=== PATIENT | male | born 1940 | race Caucasian/White ===

== ENCOUNTER 2017-04-23 09:30 | Observation (INO) ==
[2017-04-23] MEDS ORDERED: ASPIRIN PO STA (09:45)
--- NOTE | 2017-04-23 10:33 | EKG Report ---
Test Performed on : 04/23/2017 09:44:14 AM Test Reason : Chest Pain Blood Pressure : / mmHG Vent. Rate : 060 BPM Atrial Rate : 060 BPM P-R Int : 160 ms QRS Dur : 082 ms QT Int : 416 ms P-R-T Axes : 043 -39 015 degrees QTc Int : 416 ms Normal sinus rhythm. Left axis deviation Inferior infarct (cited on or before 07-APR-2014) Abnormal ECG When compared with ECG of 01-JAN-2017 20:39, premature ventricular complexes. are no longer present Serial changes of Inferior infarct present Unconfirmed Result
[2017-04-23 10:35] LABS: MANUAL DIFF NEEDED? NO
[2017-04-23 10:38] LABS: BASO% 0.1 % (0.0-0.8); EOS# 0.12 X1000 (0.0-0.7); EOS% 1.4 % (0.0-10.0); HEMOGLOBIN 14.9 g/dL (14.0-18.0); LYMPH# 2.27 X1000 (1.2-3.4); LYMPH% 26.3 % (20.5-51.1); MCH 32.6 PG (27-31); MCHC 34.7 g/dL (33-37); MCV 94.1 FL (81-99); MONO# 1.24 X1000 (0.11-0.59); MONO% 14.4 % (1.7-9.3); MPV 10.5 FL (7.4-10.4); NEUT% 57.8 % (42.2-75.2); PLT 184 X1000 (130-400); RBC 4.57 XMIL (4.7-6.1)
[2017-04-23 10:47] LABS: INR 1.04; PTT 29.2 Seconds (22.0-36.0)
--- NOTE | 2017-04-23 10:53 | Diag Imaging Result Doc PS360 ---
EXAM: CHEST-1 VIEW HISTORY: CP TECHNIQUE: AP portable chest at 1000 COMMENT: The inspiration is better than on 04/23/2014. Otherwise has been no significant change. The heart size remains enlarged. IMPRESSION: Cardiomegaly. Electronically signed by Suleiman Krueger 04/23/2017 10:50 AM
[2017-04-23 11:02] LABS: AGAP 14; ALBUMIN 4.1 g/dL (3.5-5.0); ALKALINE PHOSPHATASE 106 U/L (32-122); BUN 16 mg/dL (8-22); CALCIUM 8.9 mg/dL (8.8-10.2); CHLORIDE 100 mmol/L (98-107); CK PROFILE 74 U/L (24-204); COSMO 277; GOT 22 U/L (10-34); GPT 21 U/L (10-44); POTASSIUM 4.5 mmol/L (3.5-5.1); SODIUM 137 mmol/L (136-145); TCO2 23 mmol/L (25-35); TOTAL BILIRUBIN 0.86 mg/dL (0.20-1.00); TOTAL PROTEIN 6.4 g/dL (6.3-8.3)
--- NOTE | 2017-04-23 11:26 | ED EKG INTERP ---
This chart was entered by Carlos Bai Scribe, acting as scribe for Zohreh Dobbs MD. EKG Interpretation - EKG Time of EKG reading by physician:: 09:49 EKG Read and Signed by:: Zohreh Dobbs EKG Interpretation (*Must complete 3 of following elements*): Normal Rate: 60 Rhythm: NSR [place]: left WI Interval: normal ST Wave: normal Comments: inferior infarct, age undetermined This chart was documented by the indicated scribe, (Carlos Bai Scribe) and accurately reflects the services I performed and decisions made by me, Zohreh Dobbs MD, as attested by the provider's signature.
--- NOTE | 2017-04-23 11:57 | Diag Imaging Result Doc PS360 ---
EXAM: ANGIOGRAM/PULMONARY ARTERIES HISTORY: CP TECHNIQUE: CT of the chest with intravenous contrast and reduced dose (clarity.) COMMENT: There is COPD particularly in the right upper lobe. There are no filling defects in the pulmonary arteries. The aorta is without evidence of dissection or aneurysm. There is considerable coronary calcification. There has been previous sternotomy. There is an 18 mm right paratracheal node just above the juwan. No abnormal fluid collections are present. There is some fibrotic change in the lung bases. There is a nodule in the right upper lobe on image 33 which is not clearly calcified and measures 11 mm in greatest dimension. There is a 9 mm left hilar node. No acute bony abnormalities are present. IMPRESSION: No evidence of pulmonary emboli. Right upper lobe nodule as described. Mediastinal and hilar adenopathy. Electronically signed by Suleiman Krueger 04/23/2017 11:55 AM
--- NOTE | 2017-04-23 12:18 | PROVIDER DOCUMENTATION ---
This chart was entered by Carlos Bai Scribe, acting as scribe for Zohreh Dobbs MD. HPI-Chest Pain - General Chief Complaint: Chest Pain Stated Complaint: heaviness in chest Time Seen by Provider: 04/23/17 10:00 Source: patient Allergies/Adverse Reactions: Patient Allergies Allergy/AdvReac Type Severity Reaction Status Date / Time No Known Allergies Allergy Verified 01/01/17 22:58 Home Medications: Home Medication List Medication Instructions Recorded Confirmed Last Taken Type Metoprolol [Lopressor] 50 mg PO Q12H #0 tablet 04/09/14 04/23/17 04/22/17 20:00 Rx Tamsulosin HCl 0.4 mg PO DAILY 12/30/16 04/23/17 04/22/17 07:00 History Apixaban [Eliquis] 5 mg PO BID 12/31/16 04/23/17 04/22/17 20:00 History ATORVAstatin [Lipitor] 40 mg PO QHS 04/23/17 04/23/17 04/22/17 20:00 History Multivitamin [Multivitamins] 1 each PO DAILY 04/23/17 04/23/17 04/23/17 08:00 History [place]-3 Fatty Acids [Fish Oil] 300 mg PO DAILY 04/23/17 04/23/17 04/23/17 08:00 History Omeprazole [Prilosec] 20 mg PO BID 04/23/17 04/23/17 04/23/17 07:00 History - History of Present Illness-CP Nature of Presenting Problem: 77 yo M presents to the ER with complaint of CP x1 day. PT noticed it while playing golf yesterday. PT states it is a constant pain and worsens with deep breaths. Also complains of a cough. Location: reports: substernal Chest Pain Radiation: reports: no radiation Quality of Pain: reports: pressure Severity in ED: mild Onset/Duration: 24 hours ago Timing: still present, constant Associated Symptoms: reports: weakness (cough) Review of Systems - Adult - REVIEW OF SYSTEMS - ADULT Constitutional: denies: chills, fever Cardiovascular: reports: chest pain. denies: palpitations Respiratory: reports: cough. denies: shortness of breath Gastrointestinal: denies: abdominal pain, nausea, vomiting All Other Systems: Reviewed and Negative Past History - Adult - PAST MEDICAL HISTORY-ADULT Review of Records: reports: Old Records Reviewed, Nursing Assessment Review, Medications Reviewed, Social history reviewed & non-contributory. Major Childhood Illnesses: reports: denies history Cardiovascular: reports: A-Fib, CAD, HTN, hyperlipidemia Respiratory: reports: denies history Gastrointestinal: reports: GERD Genitourinary: reports: denies history Musculoskeletal: reports: denies history Neurological: reports: denies history Endocrine/Immune: reports: denies history Other Conditions: reports: denies history - PRIOR SURGERIES/PROCEDURES Surgical/Procedure History: reports: CABG, other (Total Knee) - PRIOR HOSPITALIZATIONS Prior Hospitalizations: reports: none - IMMUNIZATION STATUS Childhood Immunizations: See Nurse Assessment Flu Vaccine: See Nurse Assessment - FAMILY HISTORY Family History: reviewed, not pertinent Physical Exam-General - PHYSICAL EXAM-ADULT Initial Vital Signs Reviewed: Yes - CONSTITUTIONAL General Appearance: appears well, alert, no apparent distress - NECK Neck: non-tender, full range of motion, supple - RESPIRATORY Respiratory: chest non-tender, lungs clear, normal breath sounds - CARDIOVASCULAR Cardiovascular: normal peripheral pulses, regular rate, rhythm - GASTROINTESTINAL (ABDOMEN) Abdominal Exam: normal bowel sounds, non tender, soft - MUSCULOSKELETAL Extremity: normal range of motion, non-tender, normal gait - SKIN Integumentary: normal color, normal turgor, warm/dry Progress - PLAN OF CARE/RESULTS Progress/Plan/Lab Results: Vital Signs - 8 hr 04/23/17 09:43 Temperature 97.4 F L Pulse Rate 63 Respiratory Rate 20 Blood Pressure 127/68 O2 Sat by Pulse Oximetry 98 Laboratory Results - last 24 hr 04/23/17 04/23/17 04/23/17 10:18 10:18 10:18 WBC 8.63 RBC 4.57 L Hgb 14.9 Hct 43.0 MCV 94.1 MCH 32.6 H MCHC 34.7 RDW Std Deviation 13.1 Plt Count 184 MPV 10.5 H Immature Gran % (Auto) 0.0 Neut % (Auto) 57.8 Lymph % (Auto) 26.3 Becker % (Auto) 14.4 H Eos % (Auto) 1.4 Baso % (Auto) 0.1 Immature Gran # (Auto) 0.00 Neut # (Auto) 4.99 Lymph # (Auto) 2.27 Becker # (Auto) 1.24 H Eos # (Auto) 0.12 Baso # (Auto) 0.01 PT INR PTT (Actin FS) D-Dimer 0.26 Sodium 137 Potassium 4.5 Chloride 100 Carbon Dioxide 23 L Anion Gap 14 BUN 16 Creatinine 0.9 Estimated GFR/1.73 m2 > 60 BUN/Creatinine Ratio 18 Glucose 127 H Calculated Osmolality 277 Calcium 8.9 Magnesium 2.0 Total Bilirubin 0.86 AST 22 ALT 21 Alkaline Phosphatase 106 Creatine Kinase 74 Troponin T Mry-F-Mdftsvrflxu Pept Total Protein 6.4 Albumin 4.1 Globulin 2.3 Albumin/Globulin Ratio 1.8 04/23/17 04/23/17 04/23/17 10:18 10:18 10:18 WBC RBC Hgb Hct MCV MCH MCHC RDW Std Deviation Plt Count MPV Immature Gran % (Auto) Neut % (Auto) Lymph % (Auto) Becker % (Auto) Eos % (Auto) Baso % (Auto) Immature Gran # (Auto) Neut # (Auto) Lymph # (Auto) Becker # (Auto) Eos # (Auto) Baso # (Auto) PT 11.0 INR 1.04 PTT (Actin FS) 29.2 D-Dimer Sodium Potassium Chloride Carbon Dioxide Anion Gap BUN Creatinine Estimated GFR/1.73 m2 BUN/Creatinine Ratio Glucose Calculated Osmolality Calcium Magnesium Total Bilirubin AST ALT Alkaline Phosphatase Creatine Kinase Troponin T < 0.010 Boh-P-Xmzhjmskipu Pept 186 Total Protein Albumin Globulin Albumin/Globulin Ratio Orders Category Date Time Status Cardiac Monitoring DIRECTED Care 04/23/17 09:45 Active Saline Loc NOW Care 04/23/17 09:45 Active ANGIOGRAM/PULMONARY ARTERIES [CT] Stat Exams 04/23/17 11:17 Completed CHEST-1 VIEW [RAD] Stat Exams 04/23/17 09:45 Completed CBC WITH ELECTRONIC DIFF [HEME] Stat Lab 04/23/17 10:18 Completed CK PROFILE [SP CHEM] Stat Lab 04/23/17 10:18 Completed COMPREHENSIVE METABOLIC PANEL [CHEM] Stat Lab 04/23/17 10:18 Completed D-DIMER [CHEM] Stat Lab 04/23/17 10:18 Completed MAGNESIUM [CHEM] Stat Lab 04/23/17 10:18 Completed PRO B-NATRIURETIC PEPTIDE Stat Lab 04/23/17 10:18 Completed PROTIME WITH INR [COAG] Stat Lab 04/23/17 10:18 Completed PTT [COAG] Stat Lab 04/23/17 10:18 Completed TROPONIN T Stat Lab 04/23/17 10:18 Completed Aspirin Med 04/23/17 09:45 Discontinued 325 mg PO STAT STA EKG [EKG] Stat Ther 04/23/17 09:45 Draft Result Diagrams: 04/23/17 10:18 04/23/17 10:18 - REASSESSMENT Reassessment #1 Time Reassessed: 12:06 Status: unchanged (Reports he had CABG in 1998 and been following up with Dr. Ordonez. Cardiac stress test 1.5 year ago - no stent placed after that stress test. ) Reassessment #2 Time Reassessed: 12:15 Status: unchanged (Discussed with Dr. Rivera, who expressed the concern that Cardiology might want to do an cath. Pt will be admitted to Dr. Tovar at [facility].) - XRAY 1 XRAY Study: Chest Impression: Normal XRAY Interpretation: cardiomegaly - CT/MRI 1 CT Study: Angiogram Impression: Abnormal CT Results: no PE, RUL emboli, mediastinal and hilar adenopathy - CONSULTS/PCP/HOSPITALIST Notification #1 *Consult/PCP/Hospitalist*: Carlos / Dr. Dos Santos Departure - Departure Date of Disposition Decision: 04/23/17 Time of Disposition Decision: 12:17 DIAGNOSIS: Chest pain, Lung nodule Disposition: ADMITTED INPATIENT 09 Certified Medical Emergency: Emergent Condition: Stable Referrals and Follow-Ups: Sal Rivera MD [Primary Care Provider] - - Critical Care Note This patient required my direct & personal management of CC.: No This chart was documented by the indicated scribe, (Carlos Bai Scribe) and accurately reflects the services I performed and decisions made by me, Zohreh Dobbs MD, as attested by the provider's signature.
[2017-04-23] MEDS: LOPRESSOR PO SCH (16:21)
--- NOTE | 2017-04-23 16:48 | HISTORY AND PHYSICAL ---
PRIMARY CARE PHYSICIAN: Dr. Sal Rivera. LEVEL VIAL INSPECTOR: Dr. Jean Carlos Ordonez. CHIEF COMPLAINT: Chest pain. HISTORY OF PRESENT ILLNESS: Mr. Rolle is a 77-year-old male with a history of known coronary disease, paroxysmal atrial fibrillation, GERD, and others, who presents to the ER after he experienced acute onset of chest pain that began yesterday while playing golf. He reports that he was on the 16th hole and immediately after swinging a golf club he had intense chest pain on the left side of his chest. It did not radiate down his arm, however, it persisted throughout the night. He describes it as a sharp pressure. It was not associated with shortness of breath, nausea, vomiting, or diaphoresis. He tried to take some NSAIDs for it at home without relief, so he came to the ER today, as the pain persisted throughout the night. He denies any cough or congestion. No fevers or chills. He does report lower extremity edema and some progressively worsening shortness of breath. This is not similar to previous episodes of symptomatology when he was diagnosed with coronary disease. He came to the ER. Laboratories and diagnostics were done. He has a normal D-dimer; however, CTA was done in the ER, which did not show any evidence of PE or other acute process, but there was a right upper lobe nodule of 11 mm in greatest dimension with mediastinal and hilar lymphadenopathy. His EKG showed normal sinus rhythm without acute ST or T- wave abnormalities. Laboratory work was unremarkable. He is now going to be admitted for further treatment and evaluation. PAST MEDICAL HISTORY: 1. CAD. 2. Hypertension. 3. Hyperlipidemia. 4. Paroxysmal atrial fibrillation, on chronic anticoagulation. SURGICAL HISTORY: He has had a knee replacement as well as an appendectomy and he has had CABG. REVIEW OF SYSTEMS: Fourteen-point review of systems obtained and found to be negative with the exception of the HPI. ALLERGIES: No known drug allergies. HOME MEDICATIONS: Eliquis 5 mg b.i.d.; Lipitor 40 mg at bedtime; Lopressor 50 mg q.12; multivitamin 1 daily; fish oil 300 mg daily; Prilosec 20 mg b.i.d.; Flomax 0.4 mg daily. FAMILY HISTORY: Noncontributory. PHYSICAL EXAMINATION: VITAL SIGNS: Blood pressure is 160/68, heart rate is 57, respiratory rate 20, O2 saturation 100% on room air, and temperature is 98.5 degrees. GENERAL: This is an overweight male, lying in the hospital bed in no acute distress. NEUROLOGIC: The patient is awake, alert, and oriented. He follows commands without focal deficits. HEENT: Head is atraumatic and normocephalic. His pupils are equal, round, and reactive to light. His oral mucosa is moist. Trachea is midline. NECK: No JVD or carotid bruits. CHEST: Diminished at the bases. CARDIOVASCULAR: Regular rate and rhythm. S1 and S2 is noted. No murmurs, gallops, clicks, or rubs. GASTROINTESTINAL: Soft, nondistended, and nontender. Bowel sounds are positive. EXTREMITIES: Without edema, clubbing, or cyanosis. Pulses are palpable bilaterally. DIAGNOSTIC DATA: CT of the chest: See HPI. EKG: Sinus rhythm without acute ST or T-wave abnormalities. WBC 8.63, hemoglobin 14.9, hematocrit 43, platelet count 184,000. INR 1.04. Sodium 137, potassium 4.5, chloride 100, CO2 of 23, anion gap 14, BUN 16, creatinine 0.9, glucose 127, calcium 8.9, magnesium 2, bilirubin 0.86, AST 22, ALT 21, alkaline phosphatase 106. CK 74. Troponin negative. Albumin 4.1. ASSESSMENT AND PLAN: 1. Chest pain: Atypical, bordering on noncardiac in nature, patient does have some pain with movement and palpation to the chest; however, given his history, we will admit him for observation consult Cardiology, trend his cardiac enzymes, continue his home medications. 2. Coronary disease: As above. Will continue risk factor modification, check a lipid panel and hemoglobin A1c. 3. Atrial fibrillation: Currently sinus. Continue his beta-jean-paul and anticoagulant. 4. Hypertension: Chronic and stable. Continue home medications. 5. Hyperlipidemia: Chronic and stable. Continue home medications. 6. Deep vein thrombosis prophylaxis. Provided with his home Eliquis. Further recommendations to follow. Dictated by RALPH Dill for Kalyn Spencer MD cc: RALPH Dill MD
--- NOTE | 2017-04-23 20:41 | CONSULTATION ---
DATE OF CONSULTATION: 04/23/2017 CONSULTATION REQUESTED BY: Hospitalist Service. REASON FOR CONSULTATION: Chest pain. HISTORY: Mr Rolle was in his usual state of health up until yesterday about 2 p.m. in the afternoon. The patient states that he was out on the golf course playing golf. He bent over to pick up attendant a zachary. At that time, when he was straightening out, he felt intensive pain across the anterior chest and mostly localized in the left anterior chest. It was pleuritic in nature and about 7/10 in severity. It did not seem to radiate. After a few moments he continued to play and he finished the 18 holes. This happened on hole 16. He went home. On his way to the house, he drank a beer or half a beer. When he got out of the car at home, he noticed the pain coming back and it hit him a second time. Overnight he was uneasy. He could not lay on his sides because he was hurting. This morning when he woke up, he was still having some mild discomfort and decided to come to the emergency room, seeking medical evaluation. They did an EKG in the emergency room that showed sinus rhythm, rate 60 beats per minute, with a left axis deviation, old inferior scar, no acute ischemic changes. First troponin level is negative. His blood work otherwise showed nothing acute. His BUN and creatinine are normal. Pro BNP level was normal. The patient says that this is a discomfort that he has not experienced before. When he had his original angina, he described that as a discomfort in the left arm that was worsened by exercise. This appeared to be worsened by laying on his . It was also pleuritic. He is not in any distress. PAST MEDICAL HISTORY: His past history is positive for severe coronary heart disease, previous triple bypass in 1998 at [facility], mammary artery to LAD, vein graft to marginal, and vein graft to PDA. In 2013, he took a stress test that was abnormal. He was sent for cardiac cath, done by Dr. Viavr, which found that all his grafts were patent with a moderate stenosis of the vein graft to the right coronary system. At that time medical therapy was recommended. A followup stress test done in June of last year showed similar abnormalities and decision was made to treat him medically. He does have aortic stenosis and the last echo done in June of 2016 showed a rcmu-bc-[id number] degree of aortic stenosis. The pulmonary pressure was elevated. The patient has been diagnosed with paroxysmal atrial fibrillation. He has had hypertension. He has had some exertional dyspnea. He is not aware of having COPD, however, on review of his CT of the chest, he obviously has some emphysema. His medical history is negative for diabetes mellitus. He has had cataract extraction. He has had knee surgery and eye surgery. SOCIAL HISTORY: He is . He has grownup children. Not a drinker. FAMILY HISTORY: Negative. REVIEW OF SYSTEMS: The patient has been really doing well. He had an ear infection a few months ago which was treated by his primary care doctor, Dr. Rivera. In general the patient has been very functional and has not experienced any major setback in his health. In fact, he plays golf 2- 3 times a week without major difficulties. 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 He has no stressors at home. He is basically having a good time. Review of systems is noncontributory. Multiple systems were checked. He has been doing basically fine in multiple systems. HOME MEDICATIONS: 1. Flomax 0.4 mg daily. 2. Prilosec 20 twice a day. 3. [place] fish oil 300 daily. 4. Multivitamin daily. 5. Metoprolol 50 every 12 hours. 6. Eliquis 5 mg twice a day. 7. Lipitor 40 mg at bedtime. PHYSICAL EXAMINATION: Vital signs: Blood pressure is 160/68, temperature 98.5, pulse 67, respirations 20. General: He is awake, alert, oriented, in no distress. HEENT: Unremarkable. Neck: No jugular venous distention. No cervical bruits. Chest: His chest is basically clear to auscultation and percussion. Cardiac: Heart sounds are regular and rhythmic. He does have a systolic murmur, 2/6 in intensity, or aortic stenosis radiating to the neck. Abdomen: Obese, nontender. No masses. No hepatomegaly. Extremities: Show very good pulses. No peripheral edema. Neurologic: Follows commands, moves four extremities. LABORATORY DATA: A CT of the chest with pulmonary arteriogram protocol shows no evidence of pulmonary emboli, right upper lobe nodule, and some COPD particularly in the right upper lobe. IMPRESSION: 1. Patient who presented with a very atypical chest pain. This is pleuritic and more than likely related to musculoskeletal origin or rib cage origin given the worsening by changes in position and also by deep breathing. This is not an ischemic or anginal type of chest pain. 2. Previous coronary bypass surgery x3 with patent grafts on last heart cath about 3 years ago. 3. Aortic stenosis, mild to moderate. 4. Hypertension. 5. Hyperlipidemia. 6. Chronic obstructive pulmonary disease. RECOMMENDATIONS: We will check serial cardiac enzymes. We will repeat EKG in the morning and also will do a followup echo. If all those tests are negative, I think the patient may be discharged home if he is asymptomatic by tomorrow morning. He will follow up with his usual physicians. No changes will be suggested as far as medications. cc: Adis Lora MD
[2017-04-23] MEDS: ELIQUIS PO SCH (20:57)
[2017-04-23] MEDS: PRILOSEC PO SCH (20:57)
[2017-04-23] MEDS ORDERED: LIPITOR PO SCH (21:00)
[2017-04-24] MEDS: LOPRESSOR PO SCH (02:50)
[2017-04-24 06:11] LABS: AGAP 9; BUN 13 mg/dL (8-22); CHLORIDE 101 mmol/L (98-107); COSMO 280; SODIUM 139 mmol/L (136-145); TCO2 29 mmol/L (25-35)
[2017-04-24] MEDS: PRILOSEC PO SCH (06:21)
--- NOTE | 2017-04-24 07:05 | EKG Report ---
Test Performed on : 04/24/2017 06:24:03 AM Test Reason : chest pain Blood Pressure : / mmHG Vent. Rate : 053 BPM Atrial Rate : 053 BPM P-R Int : 156 ms QRS Dur : 086 ms QT Int : 448 ms P-R-T Axes : 045 -39 024 degrees QTc Int : 420 ms Sinus bradycardia. Left axis deviation Inferior infarct (cited on or before 07-APR-2014) Abnormal ECG When compared with ECG of 23-APR-2017 09:44, (Unconfirmed) No significant change was found Confirmed by Luis Manuel JACOBS, Jose Bravo ([id number]) on 04/26/2017 9:11:21 AM
[2017-04-24] MEDS: ELIQUIS PO SCH (08:30)
[2017-04-24] MEDS ORDERED: FISH OIL CONCENTRATE PO SCH (09:00)
[2017-04-24] MEDS ORDERED: FLOMAX PO SCH (09:00)
[2017-04-24] MEDS ORDERED: THERA M PLUS PO SCH (09:00)
[2017-04-24 12:02] VITALS: BP 132/85
--- NOTE | 2017-04-24 22:34 | ECHO REPORT ---
ORDER DATE: 04/24/2017 INTERPRETING PHYSICIAN: Dr. Lora REQUESTING PHYSICIAN: CLINICAL INDICATIONS: A 77-year-old male with aortic stenosis, chest pain, coronary heart disease. M-MODE MEASUREMENTS: Right ventricle: 3.7 cm. Left ventricle end diastole: 4.6 cm. Left ventricle end systole: 3.4 cm. Posterior wall: 1.3 cm. Interventricular septum: 1.3 cm. Left atrium: 3.7 cm. Aortic root: 3.9 cm. SUMMARY OF 2-DIMENSIONAL IMAGING: The left ventricular function is normal. Ejection fraction 64%. The left ventricular chamber appears to be mildly enlarged. There is a mild degree of concentric LVH. The right ventricle is moderately enlarged. The aortic valve is calcified. It shows restricted opening. Continuous wave Doppler across the outflow tract of the left ventricle shows a maximum gradient of 27 mmHg, mean gradient of 18 mmHg. Valve area calculated at 1.4 cm squared utilizing the continuity equation. The mitral annulus shows extensive calcification. The leaflets of the mitral valve show some restricted opening. Color flow mapping indicates a mild degree of regurgitation. Pulse wave Doppler of mitral inflow shows a pseudo normal pattern with an E/A ratio of 1.5. Tissue Doppler of septal and lateral mitral annulus averages 6 cm per second. The pulmonary venous flow is normal. The tricuspid valve shows a xlan-ca-bgywykam degree of regurgitation. The inferior vena cava is not dilated. Pulmonary pressure estimated at 37 mmHg. The pulmonic valve looks normal with a mild degree of regurgitation. There is no pericardial effusion, masses or thrombus. IMPRESSION: In summary, this study shows: 1. Normal left ventricular systolic function. Ejection fraction 64%. Mild degree of concentric LVH. Borderline enlargement of the left ventricle. 2. Nqoi-fc-xvbizsyy aortic stenosis. Valve area 1.4 cm squared. Mean gradient is 18 mmHg. 3. Dense calcification of mitral annulus with some restriction to the opening of the mitral valve with pseudo normal E/A ratio pattern. Diastolic function is generally well preserved. 4. Mild degree of pulmonary hypertension, estimated at 37 mmHg. Clinical correlation recommended. cc: Adis Lora MD
--- NOTE | 2017-05-07 12:30 | DISCHARGE SUMMARY ---
ADMISSION DATE: 04/23/2017 DISCHARGE DATE: 04/24/2017 FINAL DISCHARGE DIAGNOSES: 1. Chest pain. 2. Coronary artery disease. 3. Atrial fibrillation. 4. Hypertension. 5. Dyslipidemia. 6. Mediastinal and hilar adenopathy 7. Pulmonary nodule CONSULTATIONS REQUESTED DURING THIS HOSPITAL STAY: Cardiology consultation with Dr. Lora. HOSPITAL COURSE: Mr. Rolle is a 77-year-old male with a history of multiple medical problems, who initially presented to the ER with a chief complaint of chest pain. The patient was admitted to the hospitalist service and a CT of the chest with IV contrast was done that showed no evidence of pulmonary embolism but did reveal a right upper lobe nodule and a 9 mm left hilar nodule. Patient was also noted to have mediastinal and hilar adenopathy. The patient's cardiac enzymes were noted to be unremarkable. The patient's chest pain resolved. The patient also had a 2- dimensional echocardiogram done that revealed an ejection fraction of 64% as well as mild aortic stenosis. The patient continued to improve clinically and was ultimately cleared for discharge home on April 24, 2017. The patient was advised to follow up with his primary care physician for further evaluation of his adenopathy seen on the chest CT and the pulmonary nodule. DISCHARGE DIET: Cardiac diet. ACTIVITY: As tolerated. FINAL DISCHARGE INSTRUCTIONS: The patient will need to follow up with Dr. Rivera in 1-2 weeks. cc: MD Sal Zuniga MD MTDD
== END 2017-04-24 14:12 | disposition home or self-care (01) ==
LOC: ED 09:30 → 4N 09:30
PROVIDERS: ATTEND Internal Medicine